=== PATIENT | male | born 1955 | race Caucasian/White ===

== ENCOUNTER 2018-03-26 10:19 | Emergency (ER) | payer OTHER ==
[~2018-03-26] VITALS: Ht 175.3 cm; Wt 170.1 kg
[2018-03-26 10:19] VITALS: BP_SYST 104
[2018-03-26] MEDS ORDERED: NACL 0.9% 1,000 ML IV ONE (10:30)
[2018-03-26] MEDS ORDERED: MORPHINE 4 MG/ML INJ. SYRINGE IVP ONE (10:30)
[2018-03-26 10:55] LABS: BASOPHILS % (AUTO) 0.5 % (0.0-2.0); EOSINOPHILS # (AUTO) 0.1 K/uL (0.0-0.4); EOSINOPHILS % (AUTO) 1.5 % (0.0-4.0); HEMATOCRIT 28.7 % (36-54); HEMOGLOBIN 10.1 g/dL (14.0-18.0); LYMPHOCYTES # (AUTO) 0.8 K/uL (1.0-5.5); LYMPHOCYTES % (AUTO) 13.5 % (20.5-51.5); MEAN CORPUSCULAR HEMOGLOBIN 37 pg (27-31); MEAN CORPUSCULAR HGB CONC 35 % (32-36); MEAN CORPUSCULAR VOLUME 105 fL (79.0-98.0); MONOCYTES # (AUTO) 0.5 K/uL (0.0-1.0); MONOCYTES % (AUTO) 7.5 % (1.7-9.3); NEUTROPHILS # (AUTO) 4.6 K/uL (1.8-7.7); PLATELET COUNT (AUTO) 131 K/uL (130-430); RED BLOOD CELL COUNT(AUTO) 2.73 MIL/uL (4.2-6.2); RED CELL DISTRIBUTION WIDTH 13.9 % (9.0-15.0)
[2018-03-26 10:59] LABS: CALCIUM 8.4 mg/dL (8.4-11.0); CREATININE 1.08 mg/dL (0.55-1.30); POTASSIUM 3.1 mmol/L (3.5-5.1)
[2018-03-26 11:05] LABS: ALBUMIN 2.3 g/dL (3.4-4.8); INR 1.5 (0.80-1.20); PROTHROMBIN TIME 15.5 SECS (9.5-12.5); TOTAL BILIRUBIN 3.4 mg/dL (0.0-1.0)
[2018-03-26] MEDS ORDERED: POTASSIUM CHLORIDE 20 MEQ/PKT PACKET PO ONE (12:15)
[2018-03-26 12:45] VITALS: BP_SYST 100
== END 2018-03-26 12:45 | disposition home or self-care (01) ==
LOC: SED 10:19
DX: G89.29 Other chronic pain (principal); M54.5 Low back pain; E87.6 Hypokalemia; K74.60 Unspecified cirrhosis of liver; Z85.07 Personal history of malignant neoplasm of pancreas; Z85.528 Personal history of other malignant neoplasm of kidney
CPT/HCPCS: 36415; 72131; 80053; 82140; 83690; 85025; 85610; 96374; 99284; J2270; J7030